=== PATIENT | female | born 1995 | race Caucasian/White ===

== ENCOUNTER 2022-05-14 00:09 | Emergency (ER) | payer OTHER | END 2022-05-14 00:59 | disposition left against medical advice (07) | LOC: ED 00:09 | DX: R51.9 Headache, unspecified (principal); Z53.21 Procedure and treatment not carried out due to patient leaving prior to being seen by health care provider ==

== ENCOUNTER 2022-06-29 23:11 | Emergency (ER) | payer OTHER ==
[~2022-06-29] VITALS: Ht 185.4 cm; Wt 147.4 kg
== END 2022-06-30 00:12 | disposition left against medical advice (07) ==
LOC: ED 23:11
DX: O46.91 Antepartum hemorrhage, unspecified, first trimester (principal); M54.50 Low back pain, unspecified; R42 Dizziness and giddiness; Z88.2 Allergy status to sulfonamides; Z3A.01 Less than 8 weeks gestation of pregnancy

== ENCOUNTER 2022-07-24 18:59 | Emergency (ER) | payer OTHER ==
[~2022-07-24] VITALS: Ht 185.4 cm; Wt 147.4 kg
== END 2022-07-24 20:32 | disposition home or self-care (01) ==
LOC: ED 18:59
DX: S09.90XA Unspecified injury of head, initial encounter (principal); R56.9 Unspecified convulsions; Z88.2 Allergy status to sulfonamides; W18.39XA Other fall on same level, initial encounter; Y93.89 Activity, other specified; Y92.89 Other specified places as the place of occurrence of the external cause; Y99.8 Other external cause status

== ENCOUNTER 2022-10-07 18:52 | Emergency (ER) | payer MEDICAID ==
[~2022-10-07] VITALS: Ht 185.4 cm; Wt 149.7 kg
[2022-10-07] MEDS ORDERED: PRENATAL MULTI1 EAC7 PO (19:31)
[2022-10-07] MEDS ORDERED: HYDROXYZINE HCL50 MG PO (19:31)
[2022-10-07 20:07] LABS: BASO % 0.3 % (0.0-1.0); EOS % 0.4 % (1.0-4.0); HEMATOCRIT 39.7 % (37.0-47.0); LYMPH # 2.4 10*3/uL (1.3-4.4); LYMPH % 21.5 % (27.0-41.0); MEAN CELL VOLUME 84.1 fl (81.0-99.0); MEAN CORPUSCULAR HGB 27.8 pg (27.0-31.0); MEAN PLATELET VOLUME 10.4 fl (9.6-12.3); MONO # 0.6 10*3/uL (0.1-1.0); MONO % 5.7 % (3.0-9.0); NEUT % 71.7 % (47.0-73.0); PLATELET COUNT AUTOMATED 218 10*3/uL (130-400); RED BLOOD COUNT 4.72 10*6/uL (4.10-5.10); RED CELL DISTRI WIDTH 14.2 % (0-14.5); WHITE BLOOD COUNT 11.1 10*3/uL (4.8-10.8)
[2022-10-07 20:33] LABS: ALKALINE PHOSPHATASE 54 U/L (46-116); CHLORIDE 107 mmol/L (98-107); POTASSIUM 3.7 mmol/L (3.4-5.1); TOTAL PROTEIN 6.3 gm/dL (6.0-8.0)
[2022-10-07 20:36] LABS: BUN < 5 mg/dl (9-23); SGPT/ALT < 7 U/L (10-49)
[2022-10-07 21:39] LABS: BILIRUBIN Negative (Negative); BLOOD Negative (Negative); CLARITY Turbid (Clear); COLOR Yellow (Yellow); GLUCOSE Negative (Negative); KETONE Negative (Negative); LEUKO ESTERASE 2+ (Negative); NITRITE Negative (Negative); SPECIFIC GRAVITY 1.025 (1.001-1.030); UROBILINOGEN 0.2 E.U./dl (0.0-1.0)
[2022-10-07 21:50] LABS: WBC 16-20 wbc/hpf (0-5)
[2022-10-07 21:51] LABS: BACTERIA 1+
[2022-10-07] MEDS ORDERED: MACROBID100 M1 PO (21:55)
== END 2022-10-07 22:05 | disposition home or self-care (01) ==
LOC: ED 18:52
PROVIDERS: Physician Assistant
DX: G43.909 Migraine, unspecified, not intractable, without status migrainosus (principal); N39.0 Urinary tract infection, site not specified; Z88.2 Allergy status to sulfonamides; Z79.899 Other long term (current) drug therapy

== ENCOUNTER 2022-10-31 15:39 | Emergency (ER) | payer MEDICAID ==
[~2022-10-31] VITALS: Wt 152.0 kg
[~2022-10-31 15:39] MED LIST: HYDROXYZINE HCL50 MG PO; MACROBID100 M1 PO; PRENATAL MULTI1 EAC7 PO
[2022-10-31 17:08] LABS: BILIRUBIN Negative (Negative); BLOOD Negative (Negative); CLARITY Turbid (Clear); COLOR Yellow (Yellow); GLUCOSE Negative (Negative); KETONE 1+ (Negative); LEUKO ESTERASE 3+ (Negative); NITRITE Negative (Negative)
[2022-10-31 17:21] LABS: BASO % 0.3 % (0.0-1.0); EOS % 0.3 % (1.0-4.0); HEMATOCRIT 36.9 % (37.0-47.0); LYMPH # 2.4 10*3/uL (1.3-4.4); LYMPH % 25.9 % (27.0-41.0); MEAN CELL VOLUME 81.8 fl (81.0-99.0); MEAN CORPUSCULAR HGB 27.3 pg (27.0-31.0); MEAN CORPUSCULAR HGB CONC 33.3 g/dl (33.0-37.0); MEAN PLATELET VOLUME 10.2 fl (9.6-12.3); MONO # 0.5 10*3/uL (0.1-1.0); MONO % 5.3 % (3.0-9.0); NEUT # 6.4 10*3/uL (2.3-7.9); PLATELET COUNT AUTOMATED 218 10*3/uL (130-400); RED BLOOD COUNT 4.51 10*6/uL (4.10-5.10); RED CELL DISTRI WIDTH 13.7 % (0-14.5); WHITE BLOOD COUNT 9.4 10*3/uL (4.8-10.8)
[2022-10-31 17:37] LABS: ALKALINE PHOSPHATASE 61 U/L (46-116); CHLORIDE 108 mmol/L (98-107); LIPASE 27 U/L (12-53); POTASSIUM 3.7 mmol/L (3.4-5.1); SGPT/ALT 8 U/L (10-49)
[2022-10-31 17:39] LABS: BUN < 5 mg/dl (9-23)
[2022-10-31 18:15] LABS: BACTERIA 1+; EPITHELIAL CELLS 41-50; RBC 0-2 rbc/hpf (0-2); WBC 31-40 wbc/hpf (0-5)
[2022-10-31] MEDS ORDERED: MACROBID100 M1 PO (19:49)
== END 2022-10-31 19:59 | disposition home or self-care (01) ==
LOC: ED 15:39
PROVIDERS: Physician Assistant
DX: O23.93 Unspecified genitourinary tract infection in pregnancy, third trimester (principal); Z3A.28 28 weeks gestation of pregnancy

== ENCOUNTER 2023-01-18 22:04 | Emergency (ER) | payer MEDICAID ==
[~2023-01-18] VITALS: Ht 175.2 cm; Wt 113.4 kg
[2023-01-18] MEDS ORDERED: PREDNISONE20 M1 PO (22:38)
[2023-01-18] MEDS ORDERED: PROVENTIL HFA6.7 GM INH (22:38)
== END 2023-01-18 22:59 | disposition home or self-care (01) ==
LOC: ED 22:04
DX: O99.513 Diseases of the respiratory system complicating pregnancy, third trimester (principal); J45.901 Unspecified asthma with (acute) exacerbation; O21.9 Vomiting of pregnancy, unspecified; F41.9 Anxiety disorder, unspecified; Z3A.39 39 weeks gestation of pregnancy; Z88.2 Allergy status to sulfonamides; Z88.8 Allergy status to other drugs, medicaments and biological substances

== ENCOUNTER 2023-06-22 14:26 | Emergency (ER) | payer MEDICAID ==
[~2023-06-22] VITALS: Ht 185.4 cm; Wt 142.9 kg
[~2023-06-22 14:26] MED LIST changes: +PREDNISONE20 M1 PO; +PROVENTIL HFA6.7 GM INH
[2023-06-22 15:37] LABS: BASO % 0.3 % (0.0-1.0); EOS % 0.3 % (1.0-4.0); HEMATOCRIT 41.4 % (37.0-47.0); LYMPH # 1.3 10*3/uL (1.3-4.4); LYMPH % 11.6 % (27.0-41.0); MEAN CELL VOLUME 82.3 fl (81.0-99.0); MEAN CORPUSCULAR HGB 27.8 pg (27.0-31.0); MEAN CORPUSCULAR HGB CONC 33.8 g/dl (33.0-37.0); MEAN PLATELET VOLUME 9.9 fl (9.6-12.3); MONO # 0.6 10*3/uL (0.1-1.0); MONO % 5.2 % (3.0-9.0); NEUT # 9.3 10*3/uL (2.3-7.9); NEUT % 82.2 % (47.0-73.0); PLATELET COUNT AUTOMATED 220 10*3/uL (130-400); RED BLOOD COUNT 5.03 10*6/uL (4.10-5.10); RED CELL DISTRI WIDTH 13.1 % (0-14.5); WHITE BLOOD COUNT 11.2 10*3/uL (4.8-10.8)
[2023-06-22 15:50] LABS: BILIRUBIN Negative (Negative); BLOOD 3+ (Negative); CLARITY Cloudy (Clear); COLOR Orange (Yellow); GLUCOSE Negative (Negative); KETONE Trace (Negative); LEUKO ESTERASE 1+ (Negative); NITRITE Negative (Negative); PH 5.5 (4.5-8.0); UROBILINOGEN 0.2 E.U./dl (0.0-1.0)
[2023-06-22 15:59] LABS: ALKALINE PHOSPHATASE 70 U/L (46-116); BUN 6 mg/dl (9-23); CHLORIDE 109 mmol/L (98-107); LIPASE 32 U/L (12-53); POTASSIUM 3.9 mmol/L (3.4-5.1); SGPT/ALT 12 U/L (5-49); TOTAL PROTEIN 6.7 gm/dL (6.0-8.0)
[2023-06-22 16:19] LABS: BACTERIA 2+
[2023-06-22] MEDS ORDERED: ONDANSETRON4 MG SL (16:35)
[2023-06-22] MEDS ORDERED: AMOX-CLAV 875-1 EACH PO (16:35)
== END 2023-06-22 16:55 | disposition home or self-care (01) ==
LOC: ED 14:26
PROVIDERS: Nurse Practitioner Family
DX: R10.11 Right upper quadrant pain (principal); K08.89 Other specified disorders of teeth and supporting structures; L73.2 Hidradenitis suppurativa; R11.2 Nausea with vomiting, unspecified; N39.0 Urinary tract infection, site not specified; J45.909 Unspecified asthma, uncomplicated; F41.9 Anxiety disorder, unspecified; Z88.2 Allergy status to sulfonamides; Z88.8 Allergy status to other drugs, medicaments and biological substances

== ENCOUNTER 2023-09-13 18:00 | Emergency (ER) | payer MEDICAID ==
[~2023-09-13] VITALS: Ht 185.4 cm; Wt 152.0 kg
[~2023-09-13 18:00] MED LIST changes: +AMOX-CLAV 875-1 EACH PO; +ONDANSETRON4 MG SL
[2023-09-13] MEDS ORDERED: Metoclopramide Hydrochloride 10 MG/2 ML AMP IV ONE (18:15)
[2023-09-13] MEDS ORDERED: SODIUM CHLORIDE 0.9% 1,000 ML IV ONE (18:15)
[2023-09-13] MEDS ORDERED: Dexamethasone Sodium Phospha 20 MG/5 ML VIAL IV ONE (18:15)
[2023-09-13] MEDS ORDERED: Ketorolac Tromethamine 30 MG/ML VIAL IV ONE (18:15)
[2023-09-13] MEDS ORDERED: diphenhydrAMINE hydrochloride 50 MG/ML VIAL IV ONE (18:15)
== END 2023-09-13 19:55 | disposition home or self-care (01) ==
LOC: ED 18:00
DX: R51.9 Headache, unspecified (principal); R11.2 Nausea with vomiting, unspecified; F41.9 Anxiety disorder, unspecified; Z88.2 Allergy status to sulfonamides; Z88.8 Allergy status to other drugs, medicaments and biological substances